=== PATIENT | female | born 1950 | race Caucasian/White ===

== ENCOUNTER → 2021-05-11 | Day surgery (SDC) | payer OTHER ==
[~2021-05-11] MED LIST: CEPH500T PO; DULA1.5P SQ; EMPA25TA PO; FENO145T3 PO; FERR15DR16 PO; FURO20TA3 PO; INSU100C SQ; INSU100I13 SQ; LEVO112T2 PO; LOSA50TA86 PO; METO-247 PO; PREG50CA PO; SERT100T PO; SUMA100T4 PO
[2021-05-11 11:25] VITALS: BP 123/65
== END | disposition home or self-care (01) ==
LOC: SURG 11:05
PROVIDERS: ATTEND Anesthesiology
DX: G43.709 Chronic migraine without aura, not intractable, without status migrainosus (principal); M54.12 Radiculopathy, cervical region; M54.16 Radiculopathy, lumbar region; M79.7 Fibromyalgia; R53.82 Chronic fatigue, unspecified; Z71.82 Exercise counseling; Z79.899 Other long term (current) drug therapy; Z79.4 Long term (current) use of insulin; Z88.0 Allergy status to penicillin; Z88.2 Allergy status to sulfonamides; Z91.040 Latex allergy status; Z91.041 Radiographic dye allergy status; Z88.8 Allergy status to other drugs, medicaments and biological substances
CPT/HCPCS: 99214; G0463